=== PATIENT | male | born 1935 | race Caucasian/White ===

== ENCOUNTER 2017-09-15 10:24 | Outpatient (CLI) | payer MEDICARE, OTHER ==
[2017-09-15 11:09] LABS: eGFR (African) > 60; eGFR (Non-African) > 60
== END 2017-09-15 11:14 ==
LOC: LAB 10:24
PROVIDERS: ATTEND Family Medicine
DX: E78.2 Mixed hyperlipidemia (principal)
CPT/HCPCS: 36415; 80053; 80061

== ENCOUNTER 2018-03-17 14:06 | Outpatient (CLI) | payer MEDICARE, OTHER ==
[2018-03-17 14:21] LABS: EOSINOPHILS % 1.6 % (0.0-6.8); MEAN CORPUSCULAR HEMOGLOBIN 32.9 pg (28.0-34.0); MEAN CORPUSCULAR VOLUME 98.8 fl (80.0-100.0); MONOCYTES % 6.1 % (0.0-11.0); NEUTROPHILS # 3.8 # k/uL (1.4-7.7)
[2018-03-17 14:47] LABS: eGFR (African) > 60; eGFR (Non-African) > 60
== END 2018-03-17 14:15 ==
LOC: LAB 14:06
PROVIDERS: ATTEND Family Medicine
DX: R63.4 Abnormal weight loss (principal)
CPT/HCPCS: 36415; 80053; 84443; 85025

== ENCOUNTER 2019-05-18 10:16 | Outpatient (CLI) | payer MEDICARE, OTHER ==
[2019-05-18 10:56] LABS: HDL 43 mg/dL (>40); eGFR (Non-African) > 60
== END 2019-05-18 10:18 ==
LOC: LAB 10:16
PROVIDERS: ATTEND Family Medicine
DX: E78.2 Mixed hyperlipidemia (principal)
CPT/HCPCS: 36415; 80053; 80061